=== PATIENT | male | born 1965 | race Hispanic/Latino ===

== ENCOUNTER 2018-03-31 17:15 | Emergency (ER) | payer MEDICAID ==
--- NOTE | 2018-03-31 19:08 | C.PDOC ---
History Of Present Illness 53 y/o male with longstanding history of depression, presents with complaints of feeling anxious, agitated, and depressed. Patient feels as if he is not functioning. States that he had tried several medications and is now on Zoloft. Also takes klonopin as needed. Patient had a recent exacerbation with suicidal ideation in January, was admitted here, and discharged home with limited supply of medication. He was then seen outpatient, medication was changed and he subsequently ran out. Last Thursday patient reports he had an appointment, waited in the office for 5 hours, and was never seen. Denies any SI/HI. Time Seen by Provider: 03/31/18 17:52 Chief Complaint (Nursing): Psychiatric Evaluation History Per: Patient History/Exam Limitations: no limitations Onset/Duration Of Symptoms: Days Current Symptoms Are (Timing): Worse Past Medical History Reviewed: Historical Data, Nursing Documentation, Vital Signs Vital Signs: Last Vital Signs Temp 98.8 F 03/31/18 17:22 Pulse 90 03/31/18 17:22 Resp 18 03/31/18 17:22 BP 151/90 H 03/31/18 17:22 Pulse Ox 95 03/31/18 17:22 - Medical History PMH: Anxiety, Bipolar Disorder, Depression, Post Traumatic Stress Disorder - [employer] Procedures INJECT/INFUSE NEC (03/21/06) TETANUS TOXOID ADMINIST (03/21/06) Family History: States: No Known Family Hx - Social History Hx Alcohol Use: Yes (hx of etoh abuse) Hx Substance Use: Yes Review Of Systems Constitutional: Negative for: Fever Cardiovascular: Negative for: Chest Pain Respiratory: Negative for: Shortness of Breath Gastrointestinal: Negative for: Nausea, Vomiting Neurological: Negative for: Weakness, Headache Psych: Positive for: Depression. Negative for: Suicidal ideation (or HI) Physical Exam - Physical Exam Appears: Non-toxic, No Acute Distress Skin: Normal Color, Warm, Dry Head: Atraumatic, Normacephalic Eye(s): bilateral: Normal Inspection, PERRL, EOMI Nose: Normal Oral Mucosa: Moist Chest: Symmetrical Cardiovascular: Rhythm Regular, No Murmur Respiratory: Normal Breath Sounds, No Accessory Muscle Use Gastrointestinal/Abdominal: Soft, No Tenderness, No Distention Extremity: Bilateral: Atraumatic, Normal Color And Temperature, Normal ROM Neurological/Psych: Oriented x3, Normal Speech, Other (calm, cooperative) ED Course And Treatment O2 Sat by Pulse Oximetry: 95 (RA) Pulse Ox Interpretation: Normal Progress Note: Patient was seen by crisis and case discussed with psychiatrist. He is to be discharged with a 2 week supply of Zoloft and Neurontin and will arrange follow up with [facility]. Medical Decision Making Medical Decision Making: Plan: * Crisis evaluation Patient is safe for discharge as per facility maintenance worker. Provided outpatient reso urces. Disposition - Disposition Disposition: HOME/ ROUTINE Disposition Time: 19:14 Condition: STABLE Additional Instructions: Follow up with the [facility] as provided in the referral information. Prescriptions: Gabapentin [Neurontin] 300 mg PO BID #30 cap Sertraline [Zoloft] 50 mg PO DAILY #14 tab Instructions: Depression Forms: [employer] (Dominican) - Clinical Impression Clinical Impression: Moderate major depression, single episode - Scribe Statement The provider has reviewed the documentation as recorded by the Rosalie Pruitt Provider Attestation: All medical record entries made by the Chenibchalino were at my direction and personally dictated by me. I have reviewed the chart and agree that the record accurately reflects my personal performance of the history, physical exam, medical decision making, and the department course for this patient. I have also personally directed, reviewed, and agree with the discharge instructions and disposition.
[2018-03-31 19:29] VITALS: BP 135/87; PULSE 70; RESP 20; TEMP 98.6; O2SAT 97
== END 2018-03-31 19:26 | disposition home or self-care (01) ==
LOC: C.ER 17:15
DX: F32.1 Major depressive disorder, single episode, moderate (principal)